=== PATIENT | male | born 1970 | race Hispanic/Latino ===

== ENCOUNTER 2018-06-29 19:35 | Emergency (ER) | payer OTHER ==
[~2018-06-29] VITALS: Ht 188 cm; Wt 124.7 kg
--- OUTSIDE RECORDS SUMMARY | 2018-06-29 19:38 | XMS REPORT | Clinical Summary ---
Author Author [facility] Organization [facility] Address Unknown Phone Unavailable Care Team Providers Care Director Telecommunications Name Role Phone Asked, No Pcp PCP Unavailable Allergies No Known Allergies Medications End Date Status Medication Sig Dispensed Refills Start Date Active lisinopril Take 10 mg by 1 (PRINIVIL,ZESTRIL) 10 mg mouth daily. 7 tablet Active fexofenadine (VIELKA) 60 Take 60 mg by 0 MG tablet mouth daily. Active ibuprofen (ADVIL,MOTRIN) Take 400 mg 0 400 MG tablet by mouth every 6 (six) hours as needed for mild pain. Active Problems Not on file Encounters Care Team Description Date Type Specialty Israel Dhillon MD 07/25/2017 Documentation Orthopedic Surgery Israel Dhillon MD Acute bilateral low back pain, with sciatica presence unspecified (Primary Dx) 07/21/2017 Office Visit Orthopedic Surgery after 06/28/2017 Family History Medical History Relation Name Comments Diabetes Father Maxim Hurt Insulin Ching Cancer Mother Corinne Survivor Ching Diabetes Mother Corinne Type II Ching Relation Name Status Comments Father Maxim Hurt Ching Mother Corinne Ching Social History Date Tobacco Use Types Packs/Day Years Used Never Smoker Smokeless Tobacco: Never Used Alcohol Use Drinks/Week oz/Week Comments No Sex Assigned at Date Recorded Not on file Industry Job Start Date Occupation Not on file Not on file Not on file Travel End Travel History Travel Start No recent travel history available. Last Filed Vital Signs Not on file Plan of Treatment Health Maintenance Due Date Last Done Comments INFLUENZA VACCINE 12/28/2017 Results Not on fileafter 06/28/2017 Insurance Payer Benefit Subscriber ID Type Phone Address Plan / Group CIGNA CIGNA OPEN xxxxxxxxxxx HMO ACCESS/NET WORK [address] [facility] (Home) [place] [id number] Advance Directives Patient has advance care planning documents on file. For more information, scott mckeon contact: Domingo Beltran [phone] [place] [address]
[2018-06-29 21:22] LABS: BILIRUBIN,URINE NEGATIVE (NEGATIVE); CLARITY,URINE SL CLOUDY (CLEAR); COLOR,URINE YELLOW (YELLOW); KETONES,URINE NEGATIVE (NEGATIVE); LEUKOCYTE ESTERASE ,URINE NEGATIVE (NEGATIVE); NITRITE,URINE NEGATIVE (NEGATIVE); PROTEIN,URINE DIPSTICK NEGATIVE (NEGATIVE); URINE UROBILINOGEN 0.2 mg/dL (0.2 - 1)
[2018-06-29 21:29] LABS: BACTERIA,URINE FEW /HPF; EPITHELIAL CELLS,URINE FEW /LPF; RBC,URINE 0-5 /HPF (0-5); WBC,URINE (MAN) 0-5 /HPF (0-5)
--- NOTE | 2018-06-29 21:46 | Diagnostic Imaging Report ---
Exam: US TESTICULAR DOPPLER LTD, US TESTICULAR Clinical History: Testicular pain Technique: Sonographic evaluation of the testicles using grayscale and color Doppler. Findings. Both testes are normal in echogenicity and size without intratesticular mass. The right testes measures 4.1 x 2.8 x 3.2 cm and the left testes measures 4.4 x 2.5 x 3.0 cm. Symmetric blood flow is document in bilateral testicles on color Doppler and spectral tracings. Small bilateral hydroceles are noted. Mild right varicocele. Both epididymides are normal in appearance. Impression: No evidence of testicular torsion or epididymoorchitis. Signed by: Dr Leslee Carbone MD on 06/29/2018 9:43 PM
[2018-06-29 22:12] VITALS: BP 133/90
== END 2018-06-29 22:25 | disposition home or self-care (01) ==
LOC: ER 19:35
DX: N50.812 Left testicular pain (principal); N43.1 Infected hydrocele
CPT/HCPCS: 76870; 81001; 93976; 99283